=== PATIENT | female | born 1975 | race Caucasian/White ===

== ENCOUNTER 2017-07-18 09:28 | Emergency (ER) | payer OTHER ==
[~2017-07-18] VITALS: Ht 170.2 cm; Wt 140.9 kg
[2017-07-18 09:30] VITALS: BP 175/131; PULSE 98; RESP 15; O2SAT 100
--- NOTE | 2017-07-18 09:49 | ED.REPORT ---
HPI-Chest Pain 40 and Over Date of Service Jul 18, 2017 ED Provider: Carmelo Ocampo MD The pt is a 42 y/o female w/ a hx of type 2 diabetes and asthma, presenting to the ED c/o chest pain onset yesterday. The pain is constant on her L side but she also experiences intermittent diffuse CP. The CP radiates to her back, between her shoulder blades, as well. The pt also describes experiencing intermittent L hand numbness, a non- productive cough, SOB, and rhinorrhea. Denies a sore throat, fevers, nausea, lower extremity edema, or vomiting. The pt also reports a recent abscess on her leg that she lanced and treated herself. Nursing Notes Stated Complaint: CHEST PAIN Chief Complaint: Chest Pain Nursing Notes Reviewed: Yes Allergies: Coded Allergies: acetaminophen (Verified Allergy, Intermediate, BREAK OUT IN ABSCESSES ON BACK OF NECK., 07/18/17) Scheduled Prednisone (PredniSONE) 20 Mg Tablet 40 MG PO DAILY General Time Seen by MD: 09:44 Chief Complaint Chest pain Hx Obtained From: Patient Arrived By: Walk-in Sudden in Onset?: Yes Onset Occurred: Yesterday Symptom Duration: Since onset Recent Healthcare: No recent doctor visit, No recent hospitalization Similar Sx Previous: No Past Medical History Past Medical History Type 2 diabetes Asthma Pt reports being told she has a "hole in her heart" since ; Past Surgical History None reported Smoking History Unknown if Ever Smoker Social History Other Social History: Good social support Ambulatory Status Independent Review of Systems + rhinorrhea; Constitutional: Denies: Fever Respiratory: Reports: Non-productive cough, Shortness of breath Cardiovascular: Reports: Chest pain, Denies: Edema GI: Denies: Nausea, Vomiting Musculoskeletal: Reports: Back pain Neurologic: Reports: Numbness (L hand ) Complete sys rev & neg: except as marked. Ears / Nose / Throat: Denies: Sore throat Physical Exam Initial Vital Signs Vital Signs (First) Date Time Temp Pulse Resp B/P Pulse Ox O2 Delivery O2 Flow Rate FiO2 07/18/17 09:30 35.8 98 15 175/131 100 Room Air Initial VS: Reviewed Head / Eyes: Atraumatic, Normocephalic, PERRL ENT: Mucous membranes moist, Conjunctiva normal, No scleral icterus Neck: Supple, Non-tender, Full range of motion Extremities: Vascular intact, Neuro intact, No swelling, No tenderness Skin: Warm, Dry, No cyanosis Neurologic: Alert, Oriented, Nonfocal Psychiatric: Mood/affect normal, Behavior normal, Normal thought content General/Constitutional: Awake, Alert Respiratory / Chest: Atraumatic, Breath sounds NL, Breath sounds = bilat Cardiovascular: Heart rate NL, Regular rhythm, Heart sounds NL Abdomen: Atraumatic, Soft, Non-tender Interpretation & Diagnostics Lab Results Interpretation Result Diagram: 07/18/17 1020 07/18/17 1020 Test 07/18/17 10:20 07/18/17 10:59 07/18/17 12:31 White Blood Count 10.7th/mm3 (3.8-10.1) Red Blood Count 4.99mil/mm3 (3.90-5.20) Hemoglobin 13.9g/dL (12.0-15.6) Hematocrit 42.0% (35.0-46.0) Mean Corpuscular Volume 84.2fL (81-100) Mean Corpuscular Hemoglobin 27.9pg (27.0-35.0) Mean Corpuscular Hemoglobin Concent 33.1% (32.0-37.0) Red Cell Distribution Width 13.8% (12.3-15.4) Platelet Count 278bil/L (150-400) Neutrophils (%) (Auto) 66.8% (40-74) Lymphocytes (%) (Auto) 22.1% (14-46) Monocytes (%) (Auto) 6.5% (4-12) Eosinophils (%) (Auto) 3.9% (0-5) Basophils (%) (Auto) 0.3% (0-3) D-Dimer < 0.50mg/L FEU (<0.50) Sodium Level 135mEq/L (134-144) Potassium Level 4.4mEq/L (3.5-5.2) Chloride Level 95mEq/L (97-108) Carbon Dioxide Level 28mmol/L (18-29) Blood Urea Nitrogen 11mg/dL (6-24) Creatinine 0.71mg/dL (0.57-1.00) Estimat Glomerular Filtration Rate 129mL/min (>59) Glucose Level 234mg/dL (60-99) Calcium Level 9.1mg/dL (8.5-10.1) Magnesium Level 1.7mg/dL (1.6-2.6) Total Bilirubin 0.3mg/dL (0.0-1.2) Aspartate Amino Transf (AST/SGOT) 14U/L (0-50) Alanine Aminotransferase (ALT/SGPT) 14U/L (0-32) Alkaline Phosphatase 79U/L (25-150) Total Protein 7.0g/dL (6.4-8.4) Albumin 3.7g/dL (3.4-5.0) Hold Matthews Top Tube Received (Received) Hold Urine Received (Received) Troponin T 0.010ug/L (0.0-0.011) ECG Interpretation ECG Interpretation: Rate 91 NSR NO STT changes Time: 09:51 Interpreted by: ED physician X-Ray Chest Interpretation Chest Xray Interpretation: IMPRESSION: Low lung volumes with scattered atelectasis Dictated by: Jassi Robert M.D. on 07/18/2017 at 10:53 Approved by: Jassi Robert M.D. on 07/18/2017 at 11:09 View: Portable, 1 view Interpretation / Wet Read by: Interpret - Radiologist Re-Eval/Medical Decision Med Decision/Clinical Course 42-year-old female history of asthma presenting complaining of asthma exacerbation. She also reports some left-sided chest pain for several days constant.. Vital Signs are stable. Chest x-ray is clear. D-dimer is negative. Troponins are negative 2. Her pain resolved with Toradol and was reproducible on exam. Likely musculoskeletal. Consultation and she agrees with discharge home. She will follow up with primary doctor. She will be treated for an asthma exacerbation with steroid burst. Return precautions given. Source of Hx: Old records Time of Eval: 11:54 Re-Evaluation/Progress Note: Pt rechecked. Pts chest pain is still present. Discussed reassuring lab and imaging results and plans for repeats labs. Counseled Regarding: Diagnosis, Lab results, Need for follow-up, When/why to return to ED Discharge & Departure Primary Impression: Asthma exacerbation Additional Impression: Non-cardiac chest pain Disposition: Home Discharge Condition All VS Reviewed: Yes Condition: Stable Additional Instructions: Thank for you entrusting us with your care today. Your labs and imaging results were all reassuring and showed no signs of anything life threatening. Your labs showed no heart attack, blood clot in your lung. Your xray showed no pneumonia. Please take steroids as prescribed and use your inhaler as needed. You may follow up with your primary care provider with any further questions or concerns. Please return to the emergency department if you experience any new or worsening chest pain, difficulty breathing, fevers, nausea/vomiting, other new or worsening symptoms. I hope you feel better soon. Referrals: Den Mullen MD (PCP) Scribe Attestation Portions of this note were transcribed by Talib Covarrubias. I, Dr. Ocampo personally performed the history, physical exam and medical decision-making; I reviewed and confirmed the accuracy of the information in the transcribed note. copies to: Den Mullen MD, Ben M MD Jul 18, 2017 09:49 Talib Covarrubias Jul 18, 2017 10:28
[2017-07-18] MEDS ORDERED: Albuterol 2.5 mg/3 mL Inhalation Solution NEB ONE (10:00)
[2017-07-18 10:14] VITALS: PULSE 88; RESP 18; O2SAT 96
[2017-07-18 10:33] LABS: BASOPHILS % (AUTO) 0.3 % (0-3); EOSINOPHILS % (AUTO) 3.9 % (0-5); MONOCYTES % (AUTO) 6.5 % (4-12); Mean Corpuscular Hemoglobin 27.9 pg (27.0-35.0); Mean Corpuscular Volume 84.2 fL (81-100); NEUTROPHILS % (AUTO) 66.8 % (40-74); Platelet Count 278 bil/L (150-400)
[2017-07-18 10:49] LABS: TROPONIN T 0.01 ug/L (0.0-0.011)
[2017-07-18 11:00] LABS: Magnesium 1.7 mg/dL (1.6-2.6)
--- NOTE | 2017-07-18 11:10 | DRSVH ---
PROCEDURE: X-RAY CHEST ONE VIEW, PORTABLE ([id number]) INDICATIONS: CHEST PAIN; SHORTNESS OF BREATH TECHNIQUE: One view of the chest was acquired. COMPARISON: None. FINDINGS: Surgical changes and devices: None. Lungs and pleura: No pleural effusions or pneumothorax. Lungs are clear. Lung lines are decreased and there is scattered atelectasis Mediastinum: Mediastinal contours appear normal. Heart size is normal. Bones and chest wall: No suspicious bony lesions. Overlying soft tissues appear unremarkable. IMPRESSION: Low lung volumes with scattered atelectasis Dictated by: Jassi Robert M.D. on 07/18/2017 at 10:53 Approved by: Jassi Robert M.D. on 07/18/2017 at 11:09
[2017-07-18 12:16] VITALS: BP 110/77; PULSE 84; RESP 16; O2SAT 98
[2017-07-18] MEDS ORDERED: PRE20 PO (12:26)
[2017-07-18 13:40] VITALS: BP 110/77; PULSE 84; RESP 16; O2SAT 98
== END 2017-07-18 13:40 | disposition home or self-care (01) ==
LOC: SED 09:28
DX: J45.901 Unspecified asthma with (acute) exacerbation (principal); R20.0 Anesthesia of skin; J34.89 Other specified disorders of nose and nasal sinuses; E11.9 Type 2 diabetes mellitus without complications; Z88.5 Allergy status to narcotic agent
CPT/HCPCS: 36415; 71010; 80053; 83735; 84484; 85025; 85378; 93005; 94664; 96374; 99285; J1885; J7613